=== PATIENT | male | born 2000 | race Hispanic/Latino ===

== ENCOUNTER 2021-03-08 19:18 | Emergency (ER) | payer SELFPAY ==
[2021-03-08 19:54] LABS: Bilirubin Neg (Negative); Blood, Urine Negative (Negative); Clarity Clear (Clear); Glucose, Urine (Dipstick) Normal (Negative); Ketone, Urine Negative (Negative); Leukocyte Negative (Negative); Nitrite Negative (Negative); Protein, Urine (Dipstick) Negative (Neg-Trace); Urobilinogen Normal mg/dL (Less than 2)
[2021-03-11 20:28] LABS: Chlam.trachomatis by PCR,Urine Not Detected (NotDetected)
== END 2021-03-08 20:12 | disposition home or self-care (01) ==
LOC: CSHERS 19:18
DX: A60.01 Herpesviral infection of penis (principal)
CPT/HCPCS: 81003; 87491; 87591